=== PATIENT | male | born 2005 | race Two or more races ===

== ENCOUNTER 2023-11-27 22:19 | Emergency (ER) | payer OTHER, SELFPAY ==
[2023-11-27 22:56] VITALS: BP 132/73; BP 152/92; PULSE 69; PULSE 98; RESP 18; TEMP 37; O2SAT 98; BMI 25.1
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
[2023-11-27 23:47] VITALS: BP 129/72; PULSE 70; RESP 17; TEMP 36.8; O2SAT 97
[2023-11-28] MEDS: Cyclobenzaprine HCl 10 MG TABLET PO (00:45)
[2023-11-28 02:32] VITALS: BP 129/72; PULSE 70; RESP 17; TEMP 36.8; O2SAT 98
== END 2023-11-28 02:35 | disposition home or self-care (01) ==
PROVIDERS: Emergency Provider Emergency Medicine
DX: S13.4XXA Sprain of ligaments of cervical spine, initial encounter (principal); M54.2 Cervicalgia; R51.9 Headache, unspecified; V43.62XA Car passenger injured in collision with other type car in traffic accident, initial encounter; Y93.9 Activity, unspecified; Y92.410 Unspecified street and highway as the place of occurrence of the external cause; Y99.8 Other external cause status
CPT/HCPCS: 99283